=== PATIENT | female | born 1975 | race Caucasian/White ===

== ENCOUNTER → 2019-05-26 13:02 | Outpatient (CLI) | payer MEDICARE, MEDICAID ==
--- NOTE | 2019-06-02 09:52 | EC ---
PATIENT:TRIXIE VANCE DATE OF SERVICE: 05/26/19 SEX: F MEDICAL RECORD: [id number] DATE OF : [birth year] [facility] AGE OF PATIENT: 44 ADMISSION DATE: 05/26/19 REFERRING PHYSICIAN: INTERPRETING PHYSICIAN: NACHO LIN MD ECHOCARDIOGRAM REPORT ECHO CHARGES 4 ECHO COMPLETE Date: 05/26/19 CLINICAL DIAGNOSIS: CARDIOMYOPATHY ECHOCARDIOGRAPHIC MEASUREMENTS (adult normal given) AC root (d.<3.7cm) 2.5 cm LV Septum d (<1.2 cm> 1.0 cm Valve Excursion 1.2 cm LV Septum (systole) 1.2 cm Left Atria (s.<4.0cm> 2.9 cm LVPW d(<1.2cm) 1.0 cm RV (d.<2.3cm) 2.5 cm LVPW (sytole) 1.3 cm LV diastole(<5.6CM) 4.2 cm MV E-F(>70mm/sec) cm LV systole 3.0 cm LVOT Diameter 1.6 cm MV exc.(>10mm) 1.5 cm Est.ejection fraction (50-75%) % DOPPLER: LVIT cm/sec A 95.0 cm/sec E 51.0 cm/sec LA cm/sec RVSP 15 mmHg LVOT 107 cm/sec AOP1/2T m/s Asc. Ao 146 cm/sec RVOT 65 cm/sec RA cm/sec PA 88 cm/sec AV Gradient Peak 8.67 mmHg AV Mean 4.43 mmHg AV Area 1.5 cm MV Gradient Peak 4.67 mmHg MV Mean 1.20 mmHg MV Area cm COMMENTS: Sterile Proc Tech: Nae CALLAHAN Maintenance Engineer: 1 Dr. Lin TAPE# PACS Pericardial Effusion N DATE OF SERVICE: 05/26/2019 FINDINGS: 1. Left ventricular chamber size is within normal limits. Left ventricular systolic function is normal. Overall ejection fraction estimated at 55%. 2. Left atrium, right atrium, and right ventricular chamber sizes are within normal limits. 3. Valvular structures have normal structure and motion. 4. Doppler interrogation reveals [id number] mitral regurgitation, no other valvular insufficiency or stenosis. Pulmonary systolic pressure is normal ECHOCARDIOGRAM REPORT [id number] TRIXIE VANCE estimated at 15 mmHg. 5. No evidence of pericardial effusion or left ventricular thrombus. TRANSINT:[id number] Voice Confirmation ID: [id number] DOCUMENT ID: [id number] NACHO LIN MD at [id number] CC: [id number] DICTATION DATE: 05/26/191930 ENGINEER TECHNICIAN: 05/26/192027 DEP CLI 05/26/19 [place] [id number] JENNIFER [place] [id number]
== END | disposition home or self-care (01) ==
LOC: D.HCCARDIO 13:00
PROVIDERS: ATTEND Internal Medicine Interventional Cardiology
DX: I42.0 Dilated cardiomyopathy (principal)